=== PATIENT | female | born 1960 | race Caucasian/White ===

== ENCOUNTER 2019-06-20 22:13 | Emergency (ER) | payer OTHER ==
[~2019-06-20] VITALS: Ht 167.6 cm; Wt 74.8 kg
[~2019-06-20 22:13] MED LIST: INDOMETHACIN75 MG PO
[2019-06-20] MEDS ORDERED: METHOTREXA25 MG/1 M5 (22:16)
[2019-06-21] MEDS ORDERED: KETO10TA2 PO (02:38)
[2019-06-21] MEDS ORDERED: ZITHROMAX500 MG PO (02:38)
== END 2019-06-21 03:43 | disposition home or self-care (01) ==
LOC: ER 22:13
DX: B34.9 Viral infection, unspecified (principal); E86.0 Dehydration

== ENCOUNTER → 2020-11-16 13:20 | Outpatient (CLI) | payer OTHER ==
[~2020-11-16 13:20] MED LIST changes: +KETO10TA2 PO; +METHOTREXA25 MG/1 M5; +ZITHROMAX500 MG PO
== END | disposition home or self-care (01) ==
LOC: PPH VACUNA 13:20
DX: Z23 Encounter for immunization (principal)

== ENCOUNTER 2021-04-01 08:00 | Outpatient (CLI) | payer OTHER | END 2021-04-01 08:30 | disposition home or self-care (01) | LOC: PPH VACUNA 08:00 | DX: Z23 Encounter for immunization (principal) ==

== ENCOUNTER → 2022-01-03 | Outpatient (CLI) | payer OTHER | END | disposition home or self-care (01) | LOC: PPH VACUNA 12:30 | PROVIDERS: ATTEND Emergency Medicine Pediatric Emergency Medicine | DX: Z23 Encounter for immunization (principal) ==

== ENCOUNTER 2022-04-28 14:00 | Outpatient (CLI) | payer OTHER | END 2022-04-28 14:05 | disposition home or self-care (01) | LOC: PPH VACUNA 14:00 | PROVIDERS: ATTEND Emergency Medicine Pediatric Emergency Medicine | DX: Z23 Encounter for immunization (principal) ==